=== PATIENT | female | born 1980 | race Hispanic/Latino ===

== ENCOUNTER 2020-11-27 08:34 | Outpatient (AMBR) | payer MEDICAID, SELFPAY ==
--- NOTE | 2020-11-09 13:49 | PT.OIERPT ---
PT OP Initial Eval Patient Information Visit Reasons: neck pain Medical Diagnosis: M54.2 Treatment Dx #1: Neck Pain Start of Care: 11/09/20 Date of Onset: May 2021 Initial Assessment Subjective Pt is a 40 y/o female c/o chronic neck pain started in May 2021 after she slept wrong. Pt's neck did get better but recently worsening. Pt stated that she works at [employer] and does a lot of lifting. Pt has limitation with overhead motions, looking up, chores, self care, and recreational activities. Objective C/S AROM: all motions are WFL except neutral with extension Scapula MMTs: grossly 3-/5 BUE AROM: all motions are WFL BUE MMTs: grossly 3+/5 Bilateral Scapula MMTs: grossly 3+/5 Palpation: hypomobile C3-C6 facets; TTP bilateral upper trape Assessment Pt demonstrate neck pain with mobility deficits leading to decline function. Pt will attempt physical therapy if pain persist Pt will be refer back to provider for further consultation. Short Term and School Nurse Goals 1) Increase C/S AROM WNL in 6 wks to be able to perform chores 2) Increase BUE MMTs grossly to 4-/5 in 6 wks to be able to perform lifting activities 3) Increase bilateral scapula MMTs grossly to 4-/5 in 6 wks to be able to perform overhead motions 4) Decrease neck pain to 2/10 in 6 wks to be able to perform work duties 5) Indep with HEP Treatment Plan 1) Manual Therapy 2) Therapeutic Activities 3) Therapeutic Exercises 4) Modalities (ice, heat) Frequency and Duration 2 x wk for 6 wks Certification Dates: 11/09/20 to 02/08/21 Office Procedures PT Procedures PT Date of Service: 11/09/20 OP PT Eval Mod Complex 30 minutes: Yes
--- NOTE | 2020-11-11 08:37 | PT.ODAYNRPT ---
PT Outpatient Daily Note Date of Service: 11/11/20 OP Daily Note Visit Reasons: neck pain Outpatient Physical Therapy Treatment Date: 11/11/20 Subjective: Pt mention that her neck feels about the same. Objective: Please see flow chart for list of ther ex performed Assessment: tolerate exercises performed; cues to relax with manual stretches to get a better stretch with less guarding Plan: Continue with PT Length of Time (minutes) of Treatment: 30 Minutes Office Procedures PT Procedures PT Date of Service: 11/11/20 Therapeutic Exercise 30 minutes: Yes PT Procedures PT Date of Service: 11/09/20 OP PT Eval Mod Complex 30 minutes: Yes
--- NOTE | 2020-11-17 08:54 | PT.ODAYNRPT ---
PT Outpatient Daily Note Date of Service: 11/17/20 OP Daily Note Visit Reasons: neck pain Outpatient Physical Therapy Treatment Date: 11/17/20 Subjective: Pt's neck feels the same. Pt received her 2nd shot of the covid vaccine and not her right arm up to the neck is hurting. Pt stated that if physical therapy doesn't help her provider will be ordering a MRI Objective: Please see flow chart for list of ther ex performed Assessment: tolerate exercises with minimal pain Plan: Continue with PT Length of Time (minutes) of Treatment: 30 Minutes Office Procedures PT Procedures PT Date of Service: 11/11/20 Therapeutic Exercise 30 minutes: Yes PT Procedures PT Date of Service: 11/17/20 Therapeutic Exercise 15 minutes: Yes Manual [address] [employer] 15 minutes: Yes PT Procedures PT Date of Service: 11/09/20 OP PT Eval Mod Complex 30 minutes: Yes
--- NOTE | 2020-11-19 08:58 | PTNOTE_ITS ---
PT Outpatient Daily Note Date of Service: 11/19/20 OP Daily Note Visit Reasons: neck pain Outpatient Physical Therapy Treatment Date: 11/19/20 Subjective: Pt's neck feels the same. No change and continues have ROM limit ation due to pain Objective: Please see flow chart for list of ther ex performed Assessment: no MT today due to minimal change with MT. Performed more light stretches and c/s AROM exercises with good tolerance Plan: Continue with PT Length of Time (minutes) of Treatment: 30 Minutes Office Procedures PT Procedures PT Date of Service: 11/11/20 Therapeutic Exercise 30 minutes: Yes PT Procedures PT Date of Service: 11/17/20 Therapeutic Exercise 15 minutes: Yes Manual President Ceo & Founder 15 minutes: Yes PT Procedures PT Date of Service: 11/09/20 OP PT Eval Mod Complex 30 minutes: Yes PT Procedures PT Date of Service: 11/19/20 Therapeutic Exercise 30 minutes: Yes
--- NOTE | 2020-11-25 09:04 | PT.ODAYNRPT ---
PT Outpatient Daily Note Date of Service: 11/25/20 OP Daily Note Visit Reasons: neck pain Outpatient Physical Therapy Treatment Date: 11/25/20 Subjective: Pt's neck is about the same. she notice more pain midway through work. Objective: Please see flow chart for list of ther ex performed Assessment: tolerate exercises with minimal pain Plan: Continue with PT Length of Time (minutes) of Treatment: 30 Minutes Office Procedures PT Procedures PT Date of Service: 11/11/20 Therapeutic Exercise 30 minutes: Yes PT Procedures PT Date of Service: 11/17/20 Therapeutic Exercise 15 minutes: Yes Manual Cyber Threat Analyst 15 minutes: Yes PT Procedures PT Date of Service: 11/09/20 OP PT Eval Mod Complex 30 minutes: Yes PT Procedures PT Date of Service: 11/19/20 Therapeutic Exercise 30 minutes: Yes PT Procedures PT Date of Service: 11/25/20 Therapeutic Exercise 30 minutes: Yes
--- NOTE | 2020-11-27 08:48 | PTNOTE_ITS ---
PT OP Progress/Discharge Note Date of Service: 11/27/20 Progress Note/DC Note Progress Note/Discharge Note: DC Note Patient Information Visit Reasons: neck pain Medical Diagnosis: M54.2 Treatment Dx #1: Neck Pain Service Continue Service or Discharge: Discharge Discharge Date: 11/27/20 Status Subjective: Pt mention that her neck continues to hurt 5/10 with all activities. Pt still has limitation with work duties, driving, rotating the neck, looking up, and performing ADLs. Pt will like to stop and follow up with provider. Objective: C/S AROM: all motions are WFL with end range pain in extension Scapula MMTs: grossly 3/5 BUE AROM: all motions are WFL BUE MMTs: grossly 3+/5 Assessment: Pt continues to have neck pain with slight limitation into c/s extension leading to limitation with ADLs, chores, and work duties. Pt will no longer benefit from physical therapy due to plateau towards goals. Pt was instructed on HEP last session and educated to continue exercises to maintain overall mobility. Pt performed all exercises safely, thank you for your referrals. Plan: D/C home with HEP and follow up with MD Office Procedures PT Procedures PT Date of Service: 11/11/20 Therapeutic Exercise 30 minutes: Yes PT Procedures PT Date of Service: 11/17/20 Therapeutic Exercise 15 minutes: Yes Manual Mobile Service Rv Technician 15 minutes: Yes PT Procedures PT Date of Service: 11/09/20 OP PT Eval Mod Complex 30 minutes: Yes PT Procedures PT Date of Service: 11/19/20 Therapeutic Exercise 30 minutes: Yes PT Procedures PT Date of Service: 11/25/20 Therapeutic Exercise 30 minutes: Yes PT Procedures PT Date of Service: 11/27/20 Therapeutic Exercise 30 minutes: Yes
== END 2020-11-27 23:59 | disposition home or self-care (01) ==
PROVIDERS: Visit Provider Physician Assistant
DX: M54.2 Cervicalgia (principal); G89.29 Other chronic pain
CPT/HCPCS: 97110; 97140; 97162